=== PATIENT | male | born 2000 | race Caucasian/White ===

== ENCOUNTER 2022-11-01 15:41 | Emergency (ER) | payer MEDICAID, SELFPAY ==
[2022-11-01 16:01] VITALS: BP 125/71; PULSE 95; RESP 20; TEMP 37.2; O2SAT 99; BMI 20.5
--- NOTE | 2022-11-01 16:02 | ED.PSYCH ---
HPI - Psych General Chief Complaint: Anxiety <JOVAN Ratliff Last Filed: 11/01/22 19:00> Stated Complaint: anxiety <JOVAN Ratliff Last Filed: 11/01/22 19:00> Time Seen by Provider: 11/01/22 16:30 <JOVAN Ratliff Last Filed: 11/01/22 19:00> Source: patient, family, RN notes reviewed and old records reviewed <JOVAN Denny Last Filed: 11/01/22 18:48> Mode of arrival: ambulatory <JOVAN Denny Last Filed: 11/01/22 18:48> History of Present Illness HPI Narrative: 22-year-old male with past medical history of anxiety presenting to the ED complaining of increased anxiety x 1 year, worsening over the past few days. Admits was seen at [facility] 2 days ago prescribed Atarax without relief. Reports previously prescribed Lexapro and Ativan from PCP however stopped all medications 4-5 months ago, and no longer has PCP. Reports racing thoughts, jitteriness, difficulty concentrating. Reports marijuana use, denies other EtOH or illicit substances. Denies SI/HI, auditory or visual hallucinations, abdominal pain, CP/SOB. <JOVAN Denny Last Filed: 11/01/22 18:48> MD complaint: anxiety <JOVAN Denny Last Filed: 11/01/22 18:48> Onset (ago): week(s) <JOVAN Denny Last Filed: 11/01/22 18:48> Related Data Allergies/Adverse Reactions: Allergies Allergy/AdvReac Type Severity Reaction Status Date / Time azithromycin [From Zithromax] Allergy Hives Verified 11/01/22 16:05 <JOVAN Ratliff Last Filed: 11/01/22 19:00> Review of Systems Review of Systems: Constitutional: No Fever, No Chills, No Fatigue, No Malaise ENT/Mouth: No Hearing loss, No Ear Pain, No Nasal Congestion, No sore throat, No Rhinorrhea, No Swallowing Difficulty Eyes: No Eye Pain, No Swelling Cardiovascular: No Chest Pain, No SOB, No Edema, No Palpitations Respiratory: No Cough, No Sputum, No Dyspnea Gastrointestinal: No Nausea, No Vomiting, No Diarrhea, No Constipation, No Abdominal pain Genitourinary: No Dysuria, No Flank Pain Musculoskeletal: No joint pain, No Myalgias, No Joint Swelling Skin: No Skin Lesions, No rash Neuro: No Weakness, No Numbness, No Dizziness, No Headache Psych: + Anxiety/Panic, No Depression, No SI/HI/AH/VH, No Social Issues <JOVAN Denny - Last Filed: 11/01/22 18:48> Yes all other systems are reviewed and are negative <JOVAN Denny - Last Filed: 11/01/22 18:48> Constitutional: Constitutional: Reports as per HPI <JOVAN Denny - Last Filed: 11/01/22 18:48> [facility] Past Medical History Attestation statement: The following information was validated with the patient. <JOVAN Denny - Last Filed: 11/01/22 18:48> Social History Social History: Social History Advance Directives: No Advance Directives Information Provided: No <JOVAN Ratliff - Last Filed: 11/01/22 19:00> Physical Exam Vital Signs: Vital Signs: Last Vital Signs Temp 98.9 F 11/01/22 16:01 Pulse 95 11/01/22 16:01 Resp 20 11/01/22 16:01 BP 125/71 11/01/22 16:01 Pulse Ox 99 11/01/22 16:01 O2 Del Method Room Air 11/01/22 16:01 BMI result Body Mass Index 20.5 <JOVAN Ratliff - Last Filed: 11/01/22 19:00> Vital Signs: Last Vital Signs Temp 98.9 F 11/01/22 16:01 Pulse 95 11/01/22 16:01 Resp 20 11/01/22 16:01 BP 125/71 11/01/22 16:01 Pulse Ox 99 11/01/22 16:01 O2 Del Method Room Air 11/01/22 16:01 BMI result Body Mass Index 20.5 <JOVAN Denny - Last Filed: 11/01/22 18:48> Const: General: cooperative, healthy appearing, comfortable, no acute distress and anxious <JOVAN Denny - Last Filed: 11/01/22 18:48> Orientation/consciousness: patient oriented x3 <Danika Goodman PA - Last Filed: 11/01/22 18:48> Limitations: no limitations <JOVAN Denny - Last Filed: 11/01/22 18:48> HEENT: Head: Yes normal to inspection and Yes atraumatic <Danika Goodman PA - Last Filed: 11/01/22 18:48> Ears: hearing grossly normal bilaterally <Danika Goodman PA - Last Filed: 11/01/22 18:48> General nose exam: Normal external nose present <JOVAN Denny - Last Filed: 11/01/22 18:48> Face and sinus: Yes normal facial exam <JOVAN Denny - Last Filed: 11/01/22 18:48> Eyes: General: appearance normal, both eyes and all related structures <Danika Goodman PA - Last Filed: 11/01/22 18:48> EOM: EOMs intact bilaterally <Danika Goodman PA - Last Filed: 11/01/22 18:48> Neck: Neck: Yes normal visual inspection and Yes no meningeal signs <Danika Goodman PA - Last Filed: 11/01/22 18:48> Resp: Effort & Inspection: normal respiratory effort and no respiratory distress <Danika Goodman PA - Last Filed: 11/01/22 18:48> Auscultation: clear to auscultation bilaterally <Danika Goodman PA - Last Filed: 11/01/22 18:48> Cardio: Rate: regular rate <Danika Goodman PA - Last Filed: 11/01/22 18:48> Heart sounds: S1 normal heart sound present and S2 normal heart sound present <Danika Goodman PA - Last Filed: 11/01/22 18:48> GI: Inspection: Yes normal to inspection <JOVAN Denny - Last Filed: 11/01/22 18:48> Palpation (GI): Soft to palpation, nontender, no guarding and not rigid <JOVAN Denny - Last Filed: 11/01/22 18:48> : General: Yes no CVA tenderness <JOVAN Denny - Last Filed: 11/01/22 18:48> Back/Spine/Pelvis: Back: no CVA tenderness <JOVAN Denny - Last Filed: 11/01/22 18:48> Skin: Rashes: no rashes <JOVAN Denny - Last Filed: 11/01/22 18:48> Wounds: no wounds <JOVAN Dneny - Last Filed: 11/01/22 18:48> Neuro: General: patient oriented x3, tone normal and no meningeal signs <JOVAN Denny - Last Filed: 11/01/22 18:48> Gait exam (Neuro): Normal gait present <JOVAN Denny - Last Filed: 11/01/22 18:48> Extrem: General: Yes normal to inspection <JOVAN Denny - Last Filed: 11/01/22 18:48> Psych: Speech and movement: Normal speech and movement present and Restless speech present <JOVAN Denny - Last Filed: 11/01/22 18:48> Affect: Anxious affect present <JOVAN Denny - Last Filed: 11/01/22 18:48> Attitude: cooperative <JOVAN Denny - Last Filed: 11/01/22 18:48> Thought content: suicidality and no homicidality <JOVAN Denny - Last Filed: 11/01/22 18:48> Insight: Fair insight present (Psych) <JOVAN Denny Last Filed: 11/01/22 18:48> Course Course Course Narrative: RME- 16PM - 22yoM with a PMHx of PTSD, ANXIETY, MDD, agoraphobia who is presenting to the ED with Mother at bedside with c/o of increased anxiety, unable to focus on anything. Was recently seen at [facility] 2 days ago and prescribed hydroxyzine. He is in between doctors now due to his age. He was prescribed in the past Lexapro, buspirone and Ativan although no longer has this prescription. Mother reports he does have Lexapro at home although due to no prescriber currently he is scared to take it at this time. Mother is unsure what to do at this time she needs help. He is currently on a waiting list for therapist. Has not been on medications for months. Mother reports his anxiety/PTSD/major depressive disorder was controlled with Lexapro, buspirone and Ativan. He denies any SI or HI. Plan: Labs and care team consult ordered at this time. Patient sent back to the waiting room to be evaluated in the ED. <JOVAN Ratliff - Last Filed: 11/01/22 19:00> RME- 16PM - 22yoM with a PMHx of PTSD, ANXIETY, MDD, agoraphobia who is presenting to the ED with Mother at bedside with c/o of increased anxiety, unable to focus on anything. Was recently seen at [facility] 2 days ago and prescribed hydroxyzine. He is in between doctors now due to his age. He was prescribed in the past Lexapro, buspirone and Ativan although no longer has this prescription. Mother reports he does have Lexapro at home although due to no prescriber currently he is scared to take it at this time. Mother is unsure what to do at this time she needs help. He is currently on a waiting list for therapist. Has not been on medications for months. Mother reports his anxiety/PTSD/major depressive disorder was controlled with Lexapro, buspirone and Ativan. He denies any SI or HI. Plan: Labs and care team consult ordered at this time. Patient sent back to the waiting room to be evaluated in the ED. -labs reassuring. UA not infected. Tox screen positive for THC, ethanol negative -COVID/flu/RSV negative -0--ED care transferred to JOVAN Bee pending CARE team evaluation <JOVAN Denny - Last Filed: 11/01/22 18:48> Reevaluation(s) Reevaluation #1: Care team evaluated the patient patient does not meet inpatient criteria. Patient will be referred to [facility] and he will be seen by therapist within 24 hours and seen by psychiatrist within 72 hours. He will be discharged in his mother's hands. We instructions return if any new or worsening sent follow up with [facility]. Patient mother at bedside understand agree this plan. <JOVAN Ratliff - Last Filed: 11/01/22 19:00> Time: 18:59 <JOVAN Ratliff - Last Filed: 11/01/22 19:00> Medications Administered Discontinued Medications Generic Name Dose Route Start Last Admin Trade Name Freq PRN Reason Stop Dose Admin Lorazepam 1 mg 11/01/22 17:01 11/01/22 17:18 Lorazepam 1 Mg Tablet PO 11/01/22 17:02 1 mg ONCE ONE Administration <JOVAN Ratliff - Last Filed: 11/01/22 19:00> Medications Administered Discontinued Medications Generic Name Dose Route Start Last Admin Trade Name Freq PRN Reason Stop Dose Admin Lorazepam 1 mg 11/01/22 17:01 11/01/22 17:18 Lorazepam 1 Mg Tablet PO 11/01/22 17:02 1 mg ONCE ONE Administration <JOVAN Denny - Last Filed: 11/01/22 18:48> Medical Decision Making Medical Decision Making [facility] Narrative: 22-year-old male with past medical history of anxiety presenting to the ED complaining of increased anxiety x 1 year, worsening over the past few days. On exam vital signs stable, NAD, nontoxic appearing, restless, denies SI/HI, mildly anxious. Concern for medication noncompliance with increased anxiety. Rule out organic causes. Plan: Labs ordered in triage. P.o. Ativan, CARE team consult Please refer to course for remaining clinical decision making, interpretation of labs/imaging results, and discussions with consultants and/or family members. <JOVAN Denny Last Filed: 11/01/22 18:48> Differential Diagnosis Differential Diagnoses: The differential diagnosis associated with the presentation includes <JOVAN Denny Last Filed: 11/01/22 18:48> As above <JOVAN Denny Last Filed: 11/01/22 18:48> Admission/Observation Consideration of admission/observation: Escalation of care including admission/observation considered <JOVAN Denny Last Filed: 11/01/22 18:48> Lab Data [facility] Lab Attestation statement: I reviewed the patient's lab results. <JOVAN Denny Last Filed: 11/01/22 18:48> Result Diagrams: 11/01/22 16:25 11/01/22 16:25 <JOVAN Ratliff - Last Filed: 11/01/22 19:00> Labs: Lab Results 11/01/22 11/01/22 11/01/22 Range/Units 16:25 16:25 16:25 WBC 6.1 (4.8-10.8) X10*3/uL RBC 5.16 (4.60-5.80) X10*6/uL Hgb 15.4 (14.0-18.0) g/dl Hct 44.2 (42.0-52.0) % MCV 85.7 (80.0-98.0) fL MCH 29.8 (27.0-33.0) pg MCHC 34.8 (31.0-36.0) g/dl RDW 12.5 (11.0-16.0) % Plt Count 248 (160-400) X10*3/uL MPV 9.8 (9.4-12.4) fL Immature Gran % (Auto) 0.2 (0.0-0.4) % Neut % (Auto) 51.3 (45-73) % Lymph % (Auto) 34.0 (20-40) % Mcdonough % (Auto) 12.5 H (2-11) % Eos % (Auto) 1.0 (0-4) % Baso % (Auto) 1.0 (0-2) % Lymph # (Auto) 2.1 (1.2-4.9) X10*3/uL Mcdonough # (Auto) 0.8 (0.1-1.2) X10*3/uL Eos # (Auto) 0.1 (0.0-0.4) X10*3/uL Baso # (Auto) 0.1 (0.0-0.2) X10*3/uL Abs Immat Gran (auto) 0.01 (0.00-0.03) X10*3/uL Absolute Neuts (auto) 3.1 (2.0-8.3) x10*3/uL Absolute Nucleated RBC 0.000 (0.0-0.012) X10*3/uL Nucleated RBC % (auto) 0.0 (0.0-0.2) /100WBC PT 13.2 H (10.0-13.1) SEC INR 1.1 (0.9-1.1) Sodium 142 (135-145) mmol/L Potassium 3.8 (3.3-5.1) mmol/L Chloride 104 (96-108) mmol/L Carbon Dioxide 29 (22-29) mmol/L Anion Gap 13 (12-20) BUN 16 (9-16) mg/dL Creatinine 1.04 (0.5-1.4) mg/dL Estim Creat Clear Calc 85.7 Estimated GFR > 60 Random Glucose 93 (60-115) mg/dL Calcium 9.8 (8.4-10.2) mg/dL Magnesium 2.0 (1.6-2.6) mg/dL Total Bilirubin 1.0 (0.0-1.0) mg/dL AST 21 (5-37) U/L ALT 16 (0-40) U/L Alkaline Phosphatase 73 (39-117) U/L Total Protein 7.8 (6.5-8.0) g/dL Albumin 5.2 H (3.5-5.0) g/dL Lipase 13 (8-78) U/L Urine Color Urine Appearance Urine pH (5.0-9.0) Ur Specific Mckean (1.005-1.025) Urine Protein (Neg-Trace) mg/dL Urine Glucose (UA) (Negative) mg/dL Urine Ketones (Negative) mg/dL Urine Blood (Negative) Urine Nitrite (Negative) Ur Leukocyte Esterase (Negative) Urine Opiates Screen (Not Detect) Urine Fentanyl Screen (Not Detect) Ur Barbiturates Screen (Not Detect) Ur Phencyclidine Scrn (Not Detect) Ur Amphetamines Screen (Not Detect) U Benzodiazepines Scrn (Not Detect) Urine Cocaine Screen (Not Detect) U Marijuana (THC) Screen (Not Detect) Ethyl Alcohol mg/dL Influenza Type A (PCR) (Negative) Influenza Type B (PCR) (Negative) RSV RNA Qual (PCR) (Negative) SARS-CoV-2 RNA (RT-PCR) (Negative) 11/01/22 11/01/22 11/01/22 Range/Units 16:25 16:26 16:26 WBC (4.8-10.8) X10*3/uL RBC (4.60-5.80) X10*6/uL Hgb (14.0-18.0) g/dl Hct (42.0-52.0) % MCV (80.0-98.0) fL MCH (27.0-33.0) pg MCHC (31.0-36.0) g/dl RDW (11.0-16.0) % Plt Count (160-400) X10*3/uL MPV (9.4-12.4) fL Immature Gran % (Auto) (0.0-0.4) % Neut % (Auto) (45-73) % Lymph % (Auto) (20-40) % Mcdonough % (Auto) (2-11) % Eos % (Auto) (0-4) % Baso % (Auto) (0-2) % Lymph # (Auto) (1.2-4.9) X10*3/uL Mcdonough # (Auto) (0.1-1.2) X10*3/uL Eos # (Auto) (0.0-0.4) X10*3/uL Baso # (Auto) (0.0-0.2) X10*3/uL Abs Immat Gran (auto) (0.00-0.03) X10*3/uL Absolute Neuts (auto) (2.0-8.3) x10*3/uL Absolute Nucleated RBC (0.0-0.012) X10*3/uL Nucleated RBC % (auto) (0.0-0.2) /100WBC PT (10.0-13.1) SEC INR (0.9-1.1) Sodium (135-145) mmol/L Potassium (3.3-5.1) mmol/L Chloride (96-108) mmol/L Carbon Dioxide (22-29) mmol/L Anion Gap (12-20) BUN (9-16) mg/dL Creatinine (0.5-1.4) mg/dL Estim Creat Clear Calc Estimated GFR Random Glucose (60-115) mg/dL Calcium (8.4-10.2) mg/dL Magnesium (1.6-2.6) mg/dL Total Bilirubin (0.0-1.0) mg/dL AST (5-37) U/L ALT (0-40) U/L Alkaline Phosphatase (39-117) U/L Total Protein (6.5-8.0) g/dL Albumin (3.5-5.0) g/dL Lipase (8-78) U/L Urine Color Yellow Urine Appearance Clear Urine pH 7.5 (5.0-9.0) Ur Specific Mckean 1.015 (1.005-1.025) Urine Protein Negative (Neg-Trace) mg/dL Urine Glucose (UA) Negative (Negative) mg/dL Urine Ketones Negative (Negative) mg/dL Urine Blood Negative (Negative) Urine Nitrite Negative (Negative) Ur Leukocyte Esterase Negative (Negative) Urine Opiates Screen (Not Detect) Urine Fentanyl Screen (Not Detect) Ur Barbiturates Screen (Not Detect) Ur Phencyclidine Scrn (Not Detect) Ur Amphetamines Screen (Not Detect) U Benzodiazepines Scrn (Not Detect) Urine Cocaine Screen (Not Detect) U Marijuana (THC) Screen (Not Detect) Ethyl Alcohol < 10 mg/dL Influenza Type A (PCR) NEGATIVE (Negative) Influenza Type B (PCR) NEGATIVE (Negative) RSV RNA Qual (PCR) NEGATIVE (Negative) SARS-CoV-2 RNA (RT-PCR) NEGATIVE (Negative) 11/01/22 Range/Units 16:26 WBC (4.8-10.8) X10*3/uL RBC (4.60-5.80) X10*6/uL Hgb (14.0-18.0) g/dl Hct (42.0-52.0) % MCV (80.0-98.0) fL MCH (27.0-33.0) pg MCHC (31.0-36.0) g/dl RDW (11.0-16.0) % Plt Count (160-400) X10*3/uL MPV (9.4-12.4) fL Immature Gran % (Auto) (0.0-0.4) % Neut % (Auto) (45-73) % Lymph % (Auto) (20-40) % Mcdonough % (Auto) (2-11) % Eos % (Auto) (0-4) % Baso % (Auto) (0-2) % Lymph # (Auto) (1.2-4.9) X10*3/uL Mcdonough # (Auto) (0.1-1.2) X10*3/uL Eos # (Auto) (0.0-0.4) X10*3/uL Baso # (Auto) (0.0-0.2) X10*3/uL Abs Immat Gran (auto) (0.00-0.03) X10*3/uL Absolute Neuts (auto) (2.0-8.3) x10*3/uL Absolute Nucleated RBC (0.0-0.012) X10*3/uL Nucleated RBC % (auto) (0.0-0.2) /100WBC PT (10.0-13.1) SEC INR (0.9-1.1) Sodium (135-145) mmol/L Potassium (3.3-5.1) mmol/L Chloride (96-108) mmol/L Carbon Dioxide (22-29) mmol/L Anion Gap (12-20) BUN (9-16) mg/dL Creatinine (0.5-1.4) mg/dL Estim Creat Clear Calc Estimated GFR Random Glucose (60-115) mg/dL Calcium (8.4-10.2) mg/dL Magnesium (1.6-2.6) mg/dL Total Bilirubin (0.0-1.0) mg/dL AST (5-37) U/L ALT (0-40) U/L Alkaline Phosphatase (39-117) U/L Total Protein (6.5-8.0) g/dL Albumin (3.5-5.0) g/dL Lipase (8-78) U/L Urine Color Urine Appearance Urine pH (5.0-9.0) Ur Specific Mckean (1.005-1.025) Urine Protein (Neg-Trace) mg/dL Urine Glucose (UA) (Negative) mg/dL Urine Ketones (Negative) mg/dL Urine Blood (Negative) Urine Nitrite (Negative) Ur Leukocyte Esterase (Negative) Urine Opiates Screen Not Detected (Not Detect) Urine Fentanyl Screen Not Detected (Not Detect) Ur Barbiturates Screen Not Detected (Not Detect) Ur Phencyclidine Scrn Not Detected (Not Detect) Ur Amphetamines Screen Not Detected (Not Detect) U Benzodiazepines Scrn Not Detected (Not Detect) Urine Cocaine Screen Not Detected (Not Detect) U Marijuana (THC) Screen POSITIVE H (Not Detect) Ethyl Alcohol mg/dL Influenza Type A (PCR) (Negative) Influenza Type B (PCR) (Negative) RSV RNA Qual (PCR) (Negative) SARS-CoV-2 RNA (RT-PCR) (Negative) <JOVAN Ratliff - Last Filed: 11/01/22 19:00> Lab Results 11/01/22 11/01/22 11/01/22 Range/Units 16:25 16:25 16:25 WBC 6.1 (4.8-10.8) X10*3/uL RBC 5.16 (4.60-5.80) X10*6/uL Hgb 15.4 (14.0-18.0) g/dl Hct 44.2 (42.0-52.0) % MCV 85.7 (80.0-98.0) fL MCH 29.8 (27.0-33.0) pg MCHC 34.8 (31.0-36.0) g/dl RDW 12.5 (11.0-16.0) % Plt Count 248 (160-400) X10*3/uL MPV 9.8 (9.4-12.4) fL Immature Gran % (Auto) 0.2 (0.0-0.4) % Neut % (Auto) 51.3 (45-73) % Lymph % (Auto) 34.0 (20-40) % Mcdonough % (Auto) 12.5 H (2-11) % Eos % (Auto) 1.0 (0-4) % Baso % (Auto) 1.0 (0-2) % Lymph # (Auto) 2.1 (1.2-4.9) X10*3/uL Mcdonough # (Auto) 0.8 (0.1-1.2) X10*3/uL Eos # (Auto) 0.1 (0.0-0.4) X10*3/uL Baso # (Auto) 0.1 (0.0-0.2) X10*3/uL Abs Immat Gran (auto) 0.01 (0.00-0.03) X10*3/uL Absolute Neuts (auto) 3.1 (2.0-8.3) x10*3/uL Absolute Nucleated RBC 0.000 (0.0-0.012) X10*3/uL Nucleated RBC % (auto) 0.0 (0.0-0.2) /100WBC PT 13.2 H (10.0-13.1) SEC INR 1.1 (0.9-1.1) Sodium 142 (135-145) mmol/L Potassium 3.8 (3.3-5.1) mmol/L Chloride 104 (96-108) mmol/L Carbon Dioxide 29 (22-29) mmol/L Anion Gap 13 (12-20) BUN 16 (9-16) mg/dL Creatinine 1.04 (0.5-1.4) mg/dL Estim Creat Clear Calc 85.7 Estimated GFR > 60 Random Glucose 93 (60-115) mg/dL Calcium 9.8 (8.4-10.2) mg/dL Magnesium 2.0 (1.6-2.6) mg/dL Total Bilirubin 1.0 (0.0-1.0) mg/dL AST 21 (5-37) U/L ALT 16 (0-40) U/L Alkaline Phosphatase 73 (39-117) U/L Total Protein 7.8 (6.5-8.0) g/dL Albumin 5.2 H (3.5-5.0) g/dL Lipase 13 (8-78) U/L Urine Color Urine Appearance Urine pH (5.0-9.0) Ur Specific Mckean (1.005-1.025) Urine Protein (Neg-Trace) mg/dL Urine Glucose (UA) (Negative) mg/dL Urine Ketones (Negative) mg/dL Urine Blood (Negative) Urine Nitrite (Negative) Ur Leukocyte Esterase (Negative) Urine Opiates Screen (Not Detect) Urine Fentanyl Screen (Not Detect) Ur Barbiturates Screen (Not Detect) Ur Phencyclidine Scrn (Not Detect) Ur Amphetamines Screen (Not Detect) U Benzodiazepines Scrn (Not Detect) Urine Cocaine Screen (Not Detect) U Marijuana (THC) Screen (Not Detect) Ethyl Alcohol mg/dL Influenza Type A (PCR) (Negative) Influenza Type B (PCR) (Negative) RSV RNA Qual (PCR) (Negative) SARS-CoV-2 RNA (RT-PCR) (Negative) 11/01/22 11/01/22 11/01/22 Range/Units 16:25 16:26 16:26 WBC (4.8-10.8) X10*3/uL RBC (4.60-5.80) X10*6/uL Hgb (14.0-18.0) g/dl Hct (42.0-52.0) % MCV (80.0-98.0) fL MCH (27.0-33.0) pg MCHC (31.0-36.0) g/dl RDW (11.0-16.0) % Plt Count (160-400) X10*3/uL MPV (9.4-12.4) fL Immature Gran % (Auto) (0.0-0.4) % Neut % (Auto) (45-73) % Lymph % (Auto) (20-40) % Mcdonough % (Auto) (2-11) % Eos % (Auto) (0-4) % Baso % (Auto) (0-2) % Lymph # (Auto) (1.2-4.9) X10*3/uL Mcdonough # (Auto) (0.1-1.2) X10*3/uL Eos # (Auto) (0.0-0.4) X10*3/uL Baso # (Auto) (0.0-0.2) X10*3/uL Abs Immat Gran (auto) (0.00-0.03) X10*3/uL Absolute Neuts (auto) (2.0-8.3) x10*3/uL Absolute Nucleated RBC (0.0-0.012) X10*3/uL Nucleated RBC % (auto) (0.0-0.2) /100WBC PT (10.0-13.1) SEC INR (0.9-1.1) Sodium (135-145) mmol/L Potassium (3.3-5.1) mmol/L Chloride (96-108) mmol/L Carbon Dioxide (22-29) mmol/L Anion Gap (12-20) BUN (9-16) mg/dL Creatinine (0.5-1.4) mg/dL Estim Creat Clear Calc Estimated GFR Random Glucose (60-115) mg/dL Calcium (8.4-10.2) mg/dL Magnesium (1.6-2.6) mg/dL Total Bilirubin (0.0-1.0) mg/dL AST (5-37) U/L ALT (0-40) U/L Alkaline Phosphatase (39-117) U/L Total Protein (6.5-8.0) g/dL Albumin (3.5-5.0) g/dL Lipase (8-78) U/L Urine Color Yellow Urine Appearance Clear Urine pH 7.5 (5.0-9.0) Ur Specific Mckean 1.015 (1.005-1.025) Urine Protein Negative (Neg-Trace) mg/dL Urine Glucose (UA) Negative (Negative) mg/dL Urine Ketones Negative (Negative) mg/dL Urine Blood Negative (Negative) Urine Nitrite Negative (Negative) Ur Leukocyte Esterase Negative (Negative) Urine Opiates Screen (Not Detect) Urine Fentanyl Screen (Not Detect) Ur Barbiturates Screen (Not Detect) Ur Phencyclidine Scrn (Not Detect) Ur Amphetamines Screen (Not Detect) U Benzodiazepines Scrn (Not Detect) Urine Cocaine Screen (Not Detect) U Marijuana (THC) Screen (Not Detect) Ethyl Alcohol < 10 mg/dL Influenza Type A (PCR) NEGATIVE (Negative) Influenza Type B (PCR) NEGATIVE (Negative) RSV RNA Qual (PCR) NEGATIVE (Negative) SARS-CoV-2 RNA (RT-PCR) NEGATIVE (Negative) 11/01/22 Range/Units 16:26 WBC (4.8-10.8) X10*3/uL RBC (4.60-5.80) X10*6/uL Hgb (14.0-18.0) g/dl Hct (42.0-52.0) % MCV (80.0-98.0) fL MCH (27.0-33.0) pg MCHC (31.0-36.0) g/dl RDW (11.0-16.0) % Plt Count (160-400) X10*3/uL MPV (9.4-12.4) fL Immature Gran % (Auto) (0.0-0.4) % Neut % (Auto) (45-73) % Lymph % (Auto) (20-40) % Mcdonough % (Auto) (2-11) % Eos % (Auto) (0-4) % Baso % (Auto) (0-2) % Lymph # (Auto) (1.2-4.9) X10*3/uL Mcdonough # (Auto) (0.1-1.2) X10*3/uL Eos # (Auto) (0.0-0.4) X10*3/uL Baso # (Auto) (0.0-0.2) X10*3/uL Abs Immat Gran (auto) (0.00-0.03) X10*3/uL Absolute Neuts (auto) (2.0-8.3) x10*3/uL Absolute Nucleated RBC (0.0-0.012) X10*3/uL Nucleated RBC % (auto) (0.0-0.2) /100WBC PT (10.0-13.1) SEC INR (0.9-1.1) Sodium (135-145) mmol/L Potassium (3.3-5.1) mmol/L Chloride (96-108) mmol/L Carbon Dioxide (22-29) mmol/L Anion Gap (12-20) BUN (9-16) mg/dL Creatinine (0.5-1.4) mg/dL Estim Creat Clear Calc Estimated GFR Random Glucose (60-115) mg/dL Calcium (8.4-10.2) mg/dL Magnesium (1.6-2.6) mg/dL Total Bilirubin (0.0-1.0) mg/dL AST (5-37) U/L ALT (0-40) U/L Alkaline Phosphatase (39-117) U/L Total Protein (6.5-8.0) g/dL Albumin (3.5-5.0) g/dL Lipase (8-78) U/L Urine Color Urine Appearance Urine pH (5.0-9.0) Ur Specific Mckean (1.005-1.025) Urine Protein (Neg-Trace) mg/dL Urine Glucose (UA) (Negative) mg/dL Urine Ketones (Negative) mg/dL Urine Blood (Negative) Urine Nitrite (Negative) Ur Leukocyte Esterase (Negative) Urine Opiates Screen Not Detected (Not Detect) Urine Fentanyl Screen Not Detected (Not Detect) Ur Barbiturates Screen Not Detected (Not Detect) Ur Phencyclidine Scrn Not Detected (Not Detect) Ur Amphetamines Screen Not Detected (Not Detect) U Benzodiazepines Scrn Not Detected (Not Detect) Urine Cocaine Screen Not Detected (Not Detect) U Marijuana (THC) Screen POSITIVE H (Not Detect) Ethyl Alcohol mg/dL Influenza Type A (PCR) (Negative) Influenza Type B (PCR) (Negative) RSV RNA Qual (PCR) (Negative) SARS-CoV-2 RNA (RT-PCR) (Negative) <JOVAN Denny - Last Filed: 11/01/22 18:48> Radiology Impression Discussion of test interpretation with radiology: I have reviewed the radiologist's reading. <JOVAN Denny - Last Filed: 11/01/22 18:48> External Record Review External record reviewed: Inpatient record, Office record, Outpatient record, Prior outpatient labs, Prior outpatient radiology, Primary care record and Outside ED record <JOVAN Denny - Last Filed: 11/01/22 18:48> Discharge Plan Discharge Clinical Impression: Acute anxiety <JOVAN Ratliff - Last Filed: 11/01/22 19:00> Patient Disposition: Home, Self-Care <JOVAN Ratliff - Last Filed: 11/01/22 19:00> Instructions: Anxiety (ED) <JOVAN Ratliff - Last Filed: 11/01/22 19:00> Additional Instructions: Your blood work was reassuring You need to establish care with a therapist and primary care doctor If you have thoughts of hurting herself or others return to the ED <JOVAN Ratliff - Last Filed: 11/01/22 19:00> Referrals: [facility] [Provider Group] [facility] [Outside] <JOVAN Ratliff - Last Filed: 11/01/22 19:00>
[2022-11-01 16:33] LABS: MANUAL DIFF FLAG NO
[2022-11-01 16:34] LABS: Appearance Urine Clear; Color Urine Yellow; Glucose Urine UA Negative (Negative); Leukocyte Esterase Urine Negative (Negative); Nitrite Urine Negative (Negative); PH 7.5 (5.0-9.0); Specific Gravity - Urine 1.015 (1.005-1.025); Urine Blood Negative (Negative); Urine Ketones Negative (Negative); Urine Protein Negative (Neg-Trace)
[2022-11-01 16:34] LABS: Basophils Absolute Auto 0.1 X10*3/uL (0.0-0.2); Eosinophils Absolute Auto 0.1 X10*3/uL (0.0-0.4); Hematocrit 44.2 % (42.0-52.0); Hemoglobin 15.4 g/dl (14.0-18.0); Imm Gran Abs Auto 0.01 X10*3/uL (0.00-0.03); Imm Gran Pct Auto 0.2 % (0.0-0.4); Lymphocytes Absolute Auto 2.1 X10*3/uL (1.2-4.9); Mean Corpuscular HGB Conc 34.8 g/dl (31.0-36.0); Mean Corpuscular Hemoglobin 29.8 pg (27.0-33.0); Mean Corpuscular Volume 85.7 fL (80.0-98.0); Mean Platelet Volume 9.8 fL (9.4-12.4); Monocytes Absolute Auto 0.8 X10*3/uL (0.1-1.2); Monocytes Percent Auto 12.5 % (2-11); Neutrophils Absolute Auto 3.1 x10*3/uL (2.0-8.3); Neutrophils Percent Auto 51.3 % (45-73); Platelet Count 248 X10*3/uL (160-400); Red Blood Count 5.16 X10*6/uL (4.60-5.80); Red Cell Distribution Width 12.5 % (11.0-16.0); White Blood Count 6.1 X10*3/uL (4.8-10.8)
[2022-11-01 16:40] LABS: INTERNATIONAL NORM RATIO 1.1 (0.9-1.1); Prothrombin Time 13.2 SEC (10.0-13.1)
[2022-11-01 16:44] LABS: Amphetamine Screen Urine Not Detected (Not Detect); Barbiturates, Urine Not Detected (Not Detect); Benzodiazepines Screen Urine Not Detected (Not Detect); Cannabinoid Screen Urine POSITIVE (Not Detect); Cocaine Screen Urine Not Detected (Not Detect); Fentanyl, urine Not Detected (Not Detect); Opiate Screen Urine Not Detected (Not Detect); Phencyclidine Screen Urine Not Detected (Not Detect)
[2022-11-01 16:57] LABS: Ethanol < 10 mg/dL
[2022-11-01 16:58] LABS: Alanine Aminotransferase 16 U/L (0-40); Albumin Level 5.2 g/dL (3.5-5.0); Alkaline Phosphatase 73 U/L (39-117); Anion Gap 13 (12-20); Aspartate Amino Transferase 21 U/L (5-37); Blood Urea Nitrogen 16 mg/dL (9-16); Calcium 9.8 mg/dL (8.4-10.2); Carbon Dioxide 29 mmol/L (22-29); Chloride 104 mmol/L (96-108); Creatinine Clr Calc Pharmacy 85.7; Estimated Glomerular Filt Rate > 60; Glucose Random 93 mg/dL (60-115); Lipase 13 U/L (8-78); Potassium 3.8 mmol/L (3.3-5.1); Sodium 142 mmol/L (135-145); Total Protein 7.8 g/dL (6.5-8.0)
[2022-11-01 17:11] LABS: Influenza A PCR NEGATIVE (Negative); Influenza B PCR NEGATIVE (Negative); Resp Syncy Virus RNA Qual PCR NEGATIVE (Negative); SARS COV2 PCR INHOUSE NEGATIVE (Negative)
[2022-11-01] MEDS: LORazepam 1 MG TABLET PO (17:18)
--- NOTE | 2022-11-01 21:54 | MHC.CARE ---
CARE Team was asked to speak with the pt about his anxiety that has been increasing over the last two days. Pt stated that two days again he went to [facility] ED and had no luck there. Pt is seeking a therapist and a med prescriber that can start sooner than the six month wait time that he was given by OP providers. T/W informed the pt about [facility] and explained the new guidelines that have come out. T/W also gave the pt a handout booklet on different providers in the area. T/W talked about different coping mechanisms that the pt could try to help with his anxiety as well. Lastly, t/w called [facility], as this is the provider that the pt wanted to utilize, and made an urgent OP therapist and med prescriber referral. [facility] stated that they would contact the pt as soon as tomorrow to schedule an appt with him. Pt was given the number to [facility] as well in case he needs it in the mean time.
== END 2022-11-01 19:25 | disposition home or self-care (01) ==
PROVIDERS: Physician Assistant Medical; Emergency Provider Internal Medicine
DX: F41.1 Generalized anxiety disorder (principal); F43.0 Acute stress reaction; Z20.822 Contact with and (suspected) exposure to COVID-19; Z20.828 Contact with and (suspected) exposure to other viral communicable diseases; Z79.899 Other long term (current) drug therapy
CPT/HCPCS: 0241U; 36415; 80053; 80307; 81003; 82077; 83690; 83735; 85025; 85610; 99282; 99283

== ENCOUNTER 2023-06-21 13:55 | Emergency (ER) | payer OTHER, SELFPAY ==
[2023-06-21 14:15] VITALS: BP 112/69; PULSE 100; RESP 20; TEMP 37; O2SAT 98
--- NOTE | 2023-06-21 14:16 | ED.GENADULT ---
HPI - General Adult General Chief complaint: Anxiety Stated complaint: panic attack Time Seen by Provider: 06/21/23 19:51 Source: patient and family Mode of arrival: ambulatory History of Present Illness HPI narrative: 23-year-old male with history of anxiety and depression states that his therapist quit and he is recently been on Lexapro and Ativan but ran out yesterday. Patient presents with significant anxiety but states that has improved since waiting to be seen here in the emergency room he denies any suicidal or homicidal ideation. Patient's mother who is at bedside states that she has made arrangements for establishment with primary care doctor and states that he has an intake tomorrow morning. Related Data Previous Rx's Medication Instructions Recorded lorazepam 1 mg tablet (Ativan) 1 mg PO TID PRN anxiety #14 tabs 11/01/22 lorazepam 1 mg tablet (Ativan) 1 mg PO BID PRN anxiety #6 tabs 06/21/23 Allergies Allergy/AdvReac Type Severity Reaction Status Date / Time azithromycin [From Zithromax] Allergy Hives Verified 06/21/23 14:15 Review of Systems Review of Systems: Pertinent positives and negatives as stated in HPI [facility] Past Medical History Source: nursing notes reviewed Social History Social History Smoked in Last 30 Days: No Use of substances other than those prescribed or required for medical reasons: Yes Substance Use Type: Marijuana Advance Directives: No Advance Directives Information Provided: No Physical Exam ED Vital Signs: Vital Signs - 24 hr 06/21/23 14:15 06/21/23 20:00 06/21/23 20:09 Temperature 98.6 F Pulse Rate 100 87 Pulse Rate [Monitor] 105 H Respiratory Rate 20 16 Blood Pressure 112/69 121/78 Pulse Oximetry 98 98 Oxygen Delivery Method Room Air Room Air BMI result Body Mass Index 20.0 VITAL SIGNS: Reviewed. GENERAL: Well developed, well nourished, in no acute distress. HEAD: Normocephalic/atraumatic EYES: PERRLA, EOMI EARS: Ext canals without abnormality NOSE: Nares patent bilateral OROPHARYNX: no oral lesions noted, posterior pharynx clear NECK: Supple, no adenopathy LUNGS: Normal breath sounds. No adventitious sounds or accessory muscle use. SpO2<98> CARDIOVASCULAR: Regular rate and rhythm without noted murmurs ABDOMEN: Soft, non-tender, non-distended with bowel sounds. MUSCULOSKELETAL: No tenderness, deformities, or effusions noted on gross inspection. EXTREMITIES: No cyanosis, clubbing or edema. SKIN: Inspection of the skin reveals no rashes NEUROLOGIC: Alert and oriented x 4. Strength and sensation to light touch were grossly intact x 4, cranial nerves 2-12 are grossly intact.. Course Course Course Narrative: RME performed by Ariane Panchal PA-C. Patient is a 23 year old assigned male at presenting to the emergency department feeling very anxious with nausea. Labs and swabs ordered. Patient placed back in the waiting room pending room availability and results. Medications Administered Discontinued Medications Generic Name Dose Route Start Last Admin Trade Name Freq PRN Reason Stop Dose Admin Hydroxyzine HCl 50 mg 06/21/23 20:51 06/21/23 21:25 Hydroxyzine Hcl 50 Mg Tablet PO 06/21/23 20:52 50 mg ONCE ONE Administration Medical Decision Making Medical Decision Making [facility] Narrative: 23-year-old male with history and clinical presentation, DDX: Anxiety, infection, anemia, electrolyte derangement. I gave patient 50 mg of hydroxyzine. I reviewed all investigations and hematologic indices are grossly within normal limits, there is no evidence of leukocytosis/left shift/anemia or thrombocytopenia. Chemistry indices are grossly within normal limits without demonstration of PRIYANK her electrolytes/liver enzyme derangements. Urinalysis negative for UTI. Viral testing negative for influenza/RSV/COVID. I reviewed patient's [employer], there is primary care provider that is listed as well as a nurse practitioner Kitty Hernandez. It does appear that patient last filled a prescription in March and was a 30 day supply, I will provide 3 days of p.r.n. Ativan and encouraged patient to follow-up with his healthcare providers and attend the intake session tomorrow morning. He is otherwise hemodynamically stable and although he is anxious he is not suicidal or homicidal and appears to be otherwise medically stable. Differential Diagnosis Differential Diagnoses: The differential diagnosis associated with the presentation includes Please see the discussion above Admission/Observation Consideration of admission/observation: Escalation of care including admission/observation considered Please see the discussion above Lab Data [facility] Lab Attestation statement: I reviewed the patient's lab results. Please see the discussion above 06/21/23 15:22 12/04/23 15:22 Labs: Lab Results 06/21/23 06/21/23 Range/Units 15:22 21:26 WBC 8.0 (4.8-10.8) X10*3/uL RBC 5.01 (4.60-5.80) X10*6/uL Hgb 15.5 (14.0-18.0) g/dl Hct 44.1 (42.0-52.0) % MCV 88.0 (80.0-98.0) fL MCH 30.9 (27.0-33.0) pg MCHC 35.1 (31.0-36.0) g/dl RDW 12.4 (11.0-16.0) % Plt Count 276 (160-400) X10*3/uL MPV 10.1 (9.4-12.4) fL Immature Gran % (Auto) 0.4 (0.0-0.4) % Neut % (Auto) 66.9 (45-73) % Lymph % (Auto) 21.4 (20-40) % [place] % (Auto) 9.7 (2-11) % Eos % (Auto) 0.9 (0-4) % Baso % (Auto) 0.7 (0-2) % Lymph # (Auto) 1.7 (1.2-4.9) X10*3/uL [place] # (Auto) 0.8 (0.1-1.2) X10*3/uL Eos # (Auto) 0.1 (0.0-0.4) X10*3/uL Baso # (Auto) 0.1 (0.0-0.2) X10*3/uL Abs Immat Gran (auto) 0.03 (0.00-0.03) X10*3/uL Absolute Neuts (auto) 5.4 (2.0-8.3) x10*3/uL Absolute Nucleated RBC 0.000 (0.0-0.012) X10*3/uL Nucleated RBC % (auto) 0.0 (0.0-0.2) /100WBC Sodium 142 (135-145) mmol/L Potassium 3.9 (3.3-5.1) mmol/L Chloride 105 (96-108) mmol/L Carbon Dioxide 27 (22-29) mmol/L Anion Gap 14 (12-20) BUN 20 H (9-16) mg/dL Creatinine 0.84 (0.5-1.4) mg/dL Estim Creat Clear Calc 105.2 Estimated GFR > 60 Random Glucose 91 (60-115) mg/dL Calcium 10.0 (8.4-10.2) mg/dL Magnesium 2.0 (1.6-2.6) mg/dL Total Bilirubin 0.9 (0.0-1.0) mg/dL AST 20 (5-37) U/L ALT 13 (0-40) U/L Alkaline Phosphatase 74 (39-117) U/L Total Protein 8.2 H (6.5-8.0) g/dL Albumin 5.1 H (3.5-5.0) g/dL Urine Color DK YELLOW Urine Appearance Clear Urine pH 6.5 (5.0-9.0) Ur Specific [place] 1.025 (1.005-1.025) Urine Protein Trace (Neg-Trace) mg/dL Urine Glucose (UA) Negative (Negative) mg/dL Urine Ketones >=80 (Negative) mg/dL Urine Blood Small (1+) H (Negative) Urine Nitrite Negative (Negative) Ur Leukocyte Esterase Negative (Negative) Influenza Type A (PCR) NEGATIVE (Negative) Influenza Type B (PCR) NEGATIVE (Negative) RSV RNA Qual (PCR) NEGATIVE (Negative) SARS-CoV-2 RNA (RT-PCR) NEGATIVE (Negative) External Record Review External record reviewed: Outpatient record and Prior outpatient labs Chronic Conditions Patient?s care impacted by: Other Anxiety, depression Critical Care Time Critical Care Time Critical Care Time: Yes Total Critical Care Time: 30 Attestation: I personally attest to this time spent taking care of the patient. Discharge Plan Discharge Clinical Impression: Anxiety Patient Disposition: Home, Self-Care Instructions: Anxiety (ED) Additional Instructions: 1. Follow-up with your primary care provider. 2. Follow-up with Kitty Hernandez or whomever is taking over your case. 3. Please attend the intake appointment tomorrow morning. Do not hesitate to return to the emergency room. Prescriptions: New lorazepam [Ativan] 1 mg tablet 1 mg PO BID PRN (Reason: anxiety) Qty: 6 0RF No Action lorazepam [Ativan] 1 mg tablet 1 mg PO TID PRN (Reason: anxiety) Qty: 14 0RF Referrals: Norma Sutherland MD [Primary Care Provider] -
[2023-06-21 15:29] LABS: MANUAL DIFF FLAG NO
[2023-06-21 15:31] LABS: Basophils Absolute Auto 0.1 X10*3/uL (0.0-0.2); Basophils Percent Auto 0.7 % (0-2); Eosinophils Absolute Auto 0.1 X10*3/uL (0.0-0.4); Eosinophils Percent Auto 0.9 % (0-4); Hematocrit 44.1 % (42.0-52.0); Hemoglobin 15.5 g/dl (14.0-18.0); Imm Gran Abs Auto 0.03 X10*3/uL (0.00-0.03); Imm Gran Pct Auto 0.4 % (0.0-0.4); Lymphocytes Absolute Auto 1.7 X10*3/uL (1.2-4.9); Lymphocytes Percent Auto 21.4 % (20-40); Mean Corpuscular HGB Conc 35.1 g/dl (31.0-36.0); Mean Corpuscular Hemoglobin 30.9 pg (27.0-33.0); Mean Platelet Volume 10.1 fL (9.4-12.4); Monocytes Absolute Auto 0.8 X10*3/uL (0.1-1.2); Monocytes Percent Auto 9.7 % (2-11); Neutrophils Absolute Auto 5.4 x10*3/uL (2.0-8.3); Neutrophils Percent Auto 66.9 % (45-73); Platelet Count 276 X10*3/uL (160-400); Red Blood Count 5.01 X10*6/uL (4.60-5.80); Red Cell Distribution Width 12.4 % (11.0-16.0)
[2023-06-21 15:47] LABS: Alanine Aminotransferase 13 U/L (0-40); Albumin Level 5.1 g/dL (3.5-5.0); Alkaline Phosphatase 74 U/L (39-117); Anion Gap 14 (12-20); Aspartate Amino Transferase 20 U/L (5-37); Bilirubin Total 0.9 mg/dL (0.0-1.0); Blood Urea Nitrogen 20 mg/dL (9-16); Carbon Dioxide 27 mmol/L (22-29); Chloride 105 mmol/L (96-108); Creatinine Clr Calc Pharmacy 105.2; Estimated Glomerular Filt Rate > 60; Glucose Random 91 mg/dL (60-115); Potassium 3.9 mmol/L (3.3-5.1); Sodium 142 mmol/L (135-145); Total Protein 8.2 g/dL (6.5-8.0)
[2023-06-21 16:10] LABS: Influenza A PCR NEGATIVE (Negative); Influenza B PCR NEGATIVE (Negative); Resp Syncy Virus RNA Qual PCR NEGATIVE (Negative); SARS COV2 PCR INHOUSE NEGATIVE (Negative)
[2023-06-21 20:00] VITALS: BP 121/78; PULSE 87; RESP 16; O2SAT 98
[2023-06-21 20:09] VITALS: PULSE 105
[2023-06-21] MEDS: hydrOXYzine HCL 50 MG TABLET PO (21:25)
[2023-06-21 21:32] LABS: Appearance Urine Clear; Color Urine DK YELLOW; Glucose Urine UA Negative (Negative); Leukocyte Esterase Urine Negative (Negative); Nitrite Urine Negative (Negative); PH 6.5 (5.0-9.0); Specific Gravity - Urine 1.025 (1.005-1.025); UMIC TRIGGER UACC YES; Urine Blood Small (1+) (Negative); Urine Ketones >=80 mg/dL (Negative); Urine Protein Trace mg/dL (Neg-Trace)
[2023-06-21 21:40] LABS: Bacteria Urine None Seen (None Seen); Hyaline Casts Urine 0-2 /LPF (0-2); Squamous Epithelial Cell Urine 0-2 /HPF (0-2); WBC Urine 0-5 /HPF (0-5)
== END 2023-06-21 22:03 | disposition home or self-care (01) ==
PROVIDERS: Physician Assistant Medical; Emergency Provider Student in an Organized Health Care Education/Training Program; PCP Student in an Organized Health Care Education/Training Program
DX: F41.1 Generalized anxiety disorder (principal); F33.1 Major depressive disorder, recurrent, moderate; Z20.822 Contact with and (suspected) exposure to COVID-19; Z20.828 Contact with and (suspected) exposure to other viral communicable diseases; Z79.899 Other long term (current) drug therapy
CPT/HCPCS: 0241U; 36415; 80053; 81001; 83735; 85025; 99283; 99284